=== PATIENT | female | born 1995 | race Caucasian/White ===

== ENCOUNTER 2018-09-11 14:42 | Inpatient (IN) ==
[2018-09-11] MEDS ORDERED: ONDANSETRON 4 MG/2 ML VIAL IV PRN (16:53)
[2018-09-11] MEDS ORDERED: LACTATED RINGERS 500 ML IV PRN (16:53)
[2018-09-11 17:04] LABS: Basophils % 0.3 % (0.0-0.8); Eosinophils # 0.2 10*3/uL (0.0-0.87); Eosinophils % 1.1 % (0.00-10.9); Hematocrit 33.8 VOL% (35.7-47.0); Hemoglobin 10.9 GM/DL (12.0-16.0); Immature Granulocytes % 0.9 %; Immature Granulocytes Absolute 0.13 #; Lymphocytes # 1.9 10*3/uL (1.4-4.0); Lymphocytes % 12.6 % (21.3-54.2); Mean Corpuscular HGB Conc 32.2 GM/DL (32-36); Mean Corpuscular Hemoglobin 29 PG (27-34); Mean Corpuscular Volume 91.1 FL (87-102); Mean Platelet Volume 11.6 FL (9.6-12.0); Monocytes # 0.7 10*3/uL (0.11-0.8); Monocytes % 4.7 % (1.7-12.7); Neutrophils # 11.9 10*3/uL (1.4-7.4); Neutrophils % 80.4 % (38.7-73.9); Platelet Count 248 T/CUMM (130-400); Red Blood Count 3.71 MC/CUMM (3.8-5.5); Red Cell Distribution Width 12.5 % (9.3-17.3); White Blood Count 14.8 T/CUMM (4-12)
[2018-09-11] MEDS ORDERED: AMPICILLIN INJ 2,000 MG in SODIUM CHLORIDE 0.9% 100 ML IV ONE (17:38)
[2018-09-11] MEDS: LACTATED RINGERS 1,000 ML IV SCH ×2 (19:20→22:17)
[2018-09-11] MEDS ORDERED: BUTORPHANOL 2 MG/ML VIAL IV PRN (19:52)
[2018-09-11] MEDS ORDERED: MEPERIDINE 50 MG/1 ML VIAL IV PRN (20:06)
[2018-09-11] MEDS ORDERED: OXYTOCIN/LR 20 UNIT/1,000 ML BAG IV PRN (20:08)
[2018-09-11] MEDS ORDERED: BUTORPHANOL 2 MG/ML VIAL ONE (20:24)
[2018-09-11] MEDS ORDERED: diphenhydrAMINE 50 MG/1 ML VIAL IV PRN ×2 (21:27)
[2018-09-11] MEDS ORDERED: NALOXONE 0.4 MG/ML VIAL IV PRN (21:27)
[2018-09-11] MEDS ORDERED: PROMETHAZINE 25 MG/1 ML VIAL IM PRN (21:27)
[2018-09-11] MEDS ORDERED: ePHEDrine 50 MG/ML AMP IV PRN (21:27)
[2018-09-11] MEDS ORDERED: hydrOXYzine HCL 25 MG/1 ML VIAL IM PRN (21:27)
[2018-09-11] MEDS ORDERED: FAMOTIDINE 20 MG/2 ML VIAL IV PRN (21:28)
[2018-09-11] MEDS ORDERED: CITRIC ACID/SODIUM CITRATE 30 ML UDCUP PO PRN (21:28)
[2018-09-11] MEDS: AMPICILLIN INJ 1,000 MG in SODIUM CHLORIDE 0.9% 100 ML IV SCH (22:27)
[2018-09-12] MEDS: AMPICILLIN INJ 1,000 MG in SODIUM CHLORIDE 0.9% 100 ML IV SCH ×4 (02:22→14:25)
[2018-09-12] MEDS: LACTATED RINGERS 1,000 ML IV SCH ×3 (03:05→13:19)
[2018-09-12 03:40] LABS: Apearance,Urine CLEAR (Clear); Bacteria,Urine Occasional /HPF (Few); Bilirubin,Urine Negative (Negative); Blood, Urine Negative (Negative); Glucose,Urine (UA) Negative (Negative); Ketones,Urine 5 mg/dL (Negative); Mucus,Urine Occasional /LPF (Occasional); Nitrite,Urine Negative (Negative); Protein,Urine Negative; RBC,Urine <1 /HPF (0-4); Squamous Epithelial Cell,Urine Occasional /HPF (0-10); Urine Color Yellow (Yellow); Urine Specific Gravity 1.012 (1.001-1.035); Urine Urobilinogen < 2.0 EU/DL (0.2-1.0); WBC,Urine 1 /HPF (0-6)
[2018-09-12] MEDS: fentaNYL 2 MCG/ROPIV 0.2% EPID 100 ML EPIDURAL SCH ×2 (08:48→16:07)
[2018-09-12] MEDS ORDERED: OXYTOCIN/LR 20 UNIT/1,000 ML BAG IV SCH (10:30)
[2018-09-12] MEDS ORDERED: TERBUTALINE 1 MG/1 ML VIAL SUBCUT ONE (14:20)
[2018-09-12] MEDS ORDERED: LIDOCAINE 1% 50 ML VIAL ONE (14:21)
[2018-09-12] MEDS ORDERED: CARBOPROST TROMETHAMINE 250 MCG/ML AMP IM ONE (14:22)
[2018-09-12] MEDS ORDERED: miSOPROStol 200 MCG TABLET ONE (14:22)
[2018-09-12] MEDS ORDERED: METHYLERGONOVINE 0.2 MG/1 ML AMP ONE (14:22)
[2018-09-12] MEDS ORDERED: ceFAZolin 2,000 MG in PREMIX 1 EACH IV ONE (18:28)
[2018-09-12] MEDS ORDERED: LIDOCAINE MPF 2% /EPI 20 ML VIAL ONE (18:35)
[2018-09-12] MEDS ORDERED: MORPHINE 10 MG/10 ML VIAL ONE (18:35)
[2018-09-12] MEDS ORDERED: KETOROLAC 60 MG/2 ML VIAL IM ONE (18:35)
[2018-09-12] MEDS ORDERED: TISSUE ADHESIVE 1 EACH APPLICATOR TOP ONE (19:57)
[2018-09-12] MEDS ORDERED: OXYTOCIN/LR 20 UNIT/1,000 ML BAG IV ONE (20:08)
[2018-09-12] MEDS ORDERED: ACETAMINOPHEN 325 MG TABLET PO PRN (20:08)
[2018-09-12] MEDS ORDERED: RHO(D) IMMUNE GLOBULIN 300 MCG SYRINGE IM ONE (20:08)
[2018-09-12] MEDS ORDERED: MAGNESIUM HYDROXIDE SUSP 30 ML UDCUP PO PRN (20:08)
[2018-09-12] MEDS ORDERED: SIMETHICONE CHEW 80 MG TABLET PO PRN (20:08)
[2018-09-12 20:11] LABS: Cord Arterial Blood HCO3 20.2 MMOL/L; Cord Venous Blood HCO3 21.1 MMOL/L; Cord Venous Blood PCO2 47.7 MMHG; Cord Venous Blood PO2 32.8
[2018-09-12] MEDS ORDERED: HYDROmorphone 2 MG/1 ML VIAL IV PRN (20:26)
[2018-09-12] MEDS ORDERED: PROPOFOL 200 MG/20 ML VIAL IV ONE (20:28)
[2018-09-12] MEDS ORDERED: LACTATED RINGERS 1,000 ML IV SCH (20:30)
[2018-09-12] MEDS: DOCUSATE SODIUM 100 MG CAPSULE PO SCH (21:08)
[2018-09-13] MEDS: KETOROLAC 30 MG/1 ML VIAL IV SCH ×2 (02:08→08:26)
[2018-09-13] MEDS: ceFAZolin 1,000 MG in SYRINGE 1 EACH IV SCH ×2 (02:39→11:40)
[2018-09-13] MEDS: DOCUSATE SODIUM 100 MG CAPSULE PO SCH ×2 (08:23→21:07)
[2018-09-13] MEDS ORDERED: MULTIVITAMIN (PRENATAL) TABLET PO SCH (09:00)
[2018-09-13] MEDS: IBUPROFEN 800 MG TABLET PO PRN (12:52)
[2018-09-13 13:05] LABS: Basophils % 0.2 % (0.0-0.8); Eosinophils # 0.1 10*3/uL (0.0-0.87); Eosinophils % 0.5 % (0.00-10.9); Hematocrit 23.6 VOL% (35.7-47.0); Immature Granulocytes % 0.8 %; Immature Granulocytes Absolute 0.13 #; Lymphocytes # 1.4 10*3/uL (1.4-4.0); Lymphocytes % 8.4 % (21.3-54.2); Mean Corpuscular HGB Conc 32.6 GM/DL (32-36); Mean Corpuscular Hemoglobin 30 PG (27-34); Mean Corpuscular Volume 91.5 FL (87-102); Mean Platelet Volume 10.7 FL (9.6-12.0); Monocytes # 1.3 10*3/uL (0.11-0.8); Monocytes % 7.4 % (1.7-12.7); Neutrophils % 82.7 % (38.7-73.9); Red Cell Distribution Width 12.6 % (9.3-17.3); White Blood Count 16.9 T/CUMM (4-12)
[2018-09-13 13:18] LABS: Hemoglobin 7.7 GM/DL (12.0-16.0); Red Blood Count 2.58 MC/CUMM (3.8-5.5)
[2018-09-13 13:19] LABS: Platelet Count 179 T/CUMM (130-400)
[2018-09-13] MEDS: FERROUS SULFATE 325 MG TABLET PO SCH (17:01)
[2018-09-14] MEDS: IBUPROFEN 800 MG TABLET PO PRN (01:39)
[2018-09-14 07:14] VITALS: BP 116/65
[2018-09-14] MEDS: FERROUS SULFATE 325 MG TABLET PO SCH ×2 (07:15→10:01)
[2018-09-14] MEDS: DOCUSATE SODIUM 100 MG CAPSULE PO SCH (10:01)
== END 2018-09-14 10:35 | disposition home or self-care (01) | DRG 788 ==
LOC: N.LDOUT 14:42 → N.LD 14:47 → N.OB 09-13 12:22
PROVIDERS: ADMIT Obstetrics & Gynecology; ATTEND Obstetrics & Gynecology
PROC: LDCSECT (ICD-10-PCS; 2018-09-12 19:15)